=== PATIENT | female | born 1970 | race Caucasian/White ===

== ENCOUNTER 2017-07-13 11:38 | Emergency (ER) | payer OTHER ==
[2017-07-13] MEDS ORDERED: ONDANSETRON 4 MG/2 ML VIAL IVPUSH ONE (12:12)
[2017-07-13] MEDS ORDERED: SODIUM CHLORIDE 1,000 ML IV STA (12:12)
--- NOTE | 2017-07-13 12:13 | PDOC ---
History of Present Illness - General Stated Complaint: ABD PAIN Time Seen by Provider: 07/13/17 12:04 - History of Present Illness Initial Comments: 07/13/17 12:18 The patient is a 46 year old female with a history of HTN, DM, and a Gastric Sleeve 5 years ago who presents for evaluation of abdominal pain. The patient reports acute onset of twisting, colicy left sided abdominal pain beginning 2 hours prior to presentation. She states that the pain is worse with movement and when she "feels her intestines move." She states that she did not eat anything unusual this morning only having some coffee and a peanut butter sandwich. She denies fevers, chills, SOB, chest pain, vomiting, or changes with urination or bowel movements. She does endorse some nausea. Past History - Past Medical History Allergies/Adverse Reactions: Allergies Allergy/AdvReac Type Severity Reaction Status Date / Time No Known Allergies Allergy Verified 01/13/16 05:25 Home Medications: Ambulatory Orders Cholecalciferol (Vitamin D3) [Vitamin D3 -] 5,000 unit PO Q48H 01/13/16 Losartan Potassium [Cozaar -] 25 mg PO DAILY 01/13/16 Omeprazole [Prilosec] 40 mg PO DAILY 01/13/16 Losartan Potassium [Cozaar -] 25 mg PO DAILY #30 tablet 01/15/16 Metronidazole [Flagyl -] 250 mg PO TID #15 tablet 01/15/16 Diabetes: Yes GI Disorders: Yes (GERD) HTN: Yes - Surgical History Appendectomy: Yes - Suicide/Smoking/Psychosocial Hx Smoking Status: No Smoking History: Former smoker Have you smoked in the past 12 months: No Number of Cigarettes Smoked Daily: 0 If you are a former smoker, when did you quit?: June 2011 'Breaking Loose' booklet given: 01/13/16 Hx Alcohol Use: No Drug/Substance Use Hx: No Substance Use Type: None Hx Substance Use Treatment: No Review of Systems - Review of Systems Comments:: 07/13/17 12:21 Constitutional: No fevers, chills, fatigue, malaise HEENT: No Rhinorrhea, nasal congestion, Cardiovascular: No chest pain, syncope, palpitations, lightheadedness Respiratory: No Cough, SOB, Hemoptysis, Gastrointestinal: Abdominal pain, nausea. No Vomiting, Constipation, Diarrhea, Melena Genitourinary: No Dysuria, Frequency, Urgency, Hesitancy, Hematuria, Flank pain Musculoskeletal: No Myalgia, arthralgia Skin: No rashes, bruising, pallor Neurologic: No Headache, Dizziness, Numbness, Weakness, or Tingling Psychiatric: No Hallucinations. No SI or HI *Physical Exam - Physical Exam Comments: 07/13/17 12:21 General Appearance: Nourished. No Apparent Distress HEENT: EOMI, PRIYANKA. No Pharyngeal Erythema, Tonsillar Exudate, Tonsillar Erythema Neck: No Cervical Lymphadenopathy Respiratory/Chest: Lungs Clear, Normal Breath Sounds. No Crackles, Rales, Rhonchi, Wheezing Cardiovascular: Regular Rhythm, Regular Rate. No Murmur, Gallops, Rubs Gastrointestinal/Abdominal: Normal Bowel Sounds, Soft. Mild suprapubic and LLQ tenderness to palpation. No Guarding, Rebound, Musculoskeletal: No CVA Tenderness Extremity: Normal Capillary Refill Integumentary: Normal Color, Dry, Warm Neurologic: Fully Oriented, Alert, Normal Mood/Affect, Normal Response, ED Treatment Course - LABORATORY CBC & Chemistry Diagram: 07/13/17 13:30 07/13/17 13:30 Medical Decision Making - Medical Decision Making 07/13/17 12:23 The patient is a 46 year old female with a history of HTN, DM, and a Gastric Sleeve 5 years ago who presents for evaluation of abdominal pain. Differential includes but is not limited to: Gastroenteritis, pancreatitis, acs, infectious, metabolic derangement. Given the patient's described symptoms of acute colicy abdominal pain, it is likely her symptoms are due to a gastroenteritis. However given her significant comorbidities, we will obtain a cbc, cmp, troponin , lipase to evaluate for other etiologies including pancreatitis, and acs although less likely. We are also concerned for a SBO given her surgical history and acute onset of symptoms. We will obtain an abdomen/pelvis CT to evaluate further. We will treat the patient with iv fluids and zofran here in the ED and continue to monitor and reassess. 07/13/17 17:34 cbc demonstrates an elevated wbc to 15. cmp, troponin, lipase were unremarkable. CT results did not demonstrate any acute pathology as read by our radiologist. The patient reports some improvement in her symptoms. We discussed the results with the patient and she stated that she is able to see her primary care provider tomorrow and feels comfortable going home. We are comfortable discharging the patient home at this time with PCP follow up. The patient voiced understanding and is agreeable with the plan. *DC/Admit/Observation/Transfer Diagnosis at time of Disposition: Abdominal pain Qualifiers: Abdominal location: left lower quadrant Qualified Code(s): R10.32 - Left lower quadrant pain - Discharge Dispostion Disposition: HOME Condition at time of disposition: Improved Admit: No - Referrals Referrals: Justine Jarrell MD [Primary Care Provider] - - Patient Instructions Printed Discharge Instructions: DI for Abdominal Pain-Adult Additional Instructions: Please return to the ER if you experience concerning or worsening symptoms including vomiting that does not stop, fevers, or worsening abdominal pain. You were seen in the ER for abdominal pain. Your lab results and CT scan were unremarkable. You may try miralaxx at home to see if that helps improve your symptoms. Please follow up with your primary care provider tomorrow to discuss your ER visit and further management of your symptoms. - Post Discharge Activity
[2017-07-13] MEDS ORDERED: morphine CARPU-JECT 2 MG/1 ML DISP.SYRIN IVPUSH ONE (12:30)
[2017-07-13] MEDS ORDERED: morphine SULFATE 4 MG/ML VIAL ONE (13:03)
[2017-07-13] MEDS ORDERED: ONDANSETRON 4 MG/2 ML VIAL ONE (13:04)
--- NOTE | 2017-07-13 13:34 | PDOC ---
Attending Attestation - Resident Resident Name: Zaheer Carlisleel - ED Attending Attestation I have performed the following: I have examined & evaluated the patient, The case was reviewed & discussed with the resident, I agree w/resident's findings & plan, Exceptions are as noted - HPI HPI: 07/13/17 13:28 46-year-old female with history of gastric sleeve, cholecystectomy, appendectomy , tubal ligation presents with acute onset of left mid/left lower quadrant pain about 2 hours ago, constant since onset with intermittent exacerbations, has urge to defecate but no stool output and only minimal flatus. Nausea but no vomiting, has not had any by mouth intake since onset. No urinary complaints, did have normal urination during this pain. No history of recurring abdominal pain, no history of obstruction. - Physicial Exam PE: 07/13/17 13:30 Heart rate normal Abdomen is soft and nondistended. Tender with guarding in the left mid and left lower quadrant, bowel sounds are within normal limits. No CVA tenderness - Medical Decision Making 07/13/17 13:30 Patient seen and evaluated with the resident. I agree with the overall evaluation, assessment, and management with the following summary of visit: 46-year-old female with several abdominal surgeries in the past presents with acute onset of left lower quadrant pain with focal tenderness. Presentation could be consistent with obstruction, rule out colitis or diverticulitis, less likely source but ? colic. labs, ua pain control, anti-emetic ivf CTAP reassess 07/13/17 16:35 leukocytosis 15.7, chem otherwise wnl including lipase. UA wnl, 1+ blood but only 1 RBC. CTAP pending, will dispo accordingly. Heart Score/ECG Review #1 ECG reviewed & interpreted by me at: 14:40 General ECG Interpretation: Sinus Rhythm, Normal Rate (58), Normal Intervals ( qtc 449), No acute ischemic changes
[2017-07-13 13:48] VITALS: PULSE 73; BMI 34.1
[2017-07-13 14:11] LABS: BASOPHIL 0.5 % (0-2.0); EOSINOPHIL 0.8 % (0-4.5); MCH 28.3 pg (25.7-33.7); MEAN CELL VOLUME 85.9 fl (80-96); MEAN PLT VOLUME 7.8 fl (7.5-11.1); NEUTROPHILS 84.2 % (42.8-82.8); PLATELET COUNT 303 K/MM3 (134-434); RDW 13.9 % (11.6-15.6); WHITE BLOOD COUNT 15.7 K/mm3 (4.0-10.0)
[2017-07-13 14:37] LABS: ALBUMIN 3.7 g/dl (3.4-5.0); ANION GAP 11 (8-16); BILIRUBIN,TOTAL 0.7 mg/dL (0.2-1.0); CALCIUM 8.7 mg/dL (8.5-10.1); CO2 24 mmol/L (21-32); CREATININE 0.5 mg/dL (0.55-1.02); GLUCOSE,RANDOM 82 mg/dL (74-106); SGPT/ALT 31 U/L (12-78); TOT PROT 7.5 g/dl (6.4-8.2)
[2017-07-13 14:41] LABS: ALK PHOS 69 U/L (45-117); TROPONIN I < 0.02 ng/ml (0.00-0.05)
[2017-07-13 14:52] LABS: SGOT/AST 29 U/L (15-37)
--- NOTE | 2017-07-13 15:09 | EKG ---
Test Reason : Blood Pressure : / mmHG Vent. Rate : 058 BPM Atrial Rate : 058 BPM P-R Int : 170 ms QRS Dur : 086 ms QT Int : 458 ms P-R-T Axes : 031 002 020 degrees QTc Int : 449 ms SINUS BRADYCARDIA CANNOT RULE OUT ANTERIOR INFARCT , AGE UNDETERMINED ABNORMAL ECG WHEN COMPARED WITH ECG OF 03-MAR-2012 13:22, NO SIGNIFICANT CHANGE WAS FOUND Confirmed by LYNN DAVISON MD ([id number]) on 07/13/2017 3:08:46 PM Referred By: Confirmed By:LYNN DAVISON MD
[2017-07-13 15:49] LABS: URINE APPEARANCE CLOUDY; URINE BILIRUBIN NEGATIVE (NEGATIVE); URINE BLOOD 1+ (NEGATIVE); URINE COLOR YELLOW; URINE GLUCOSE (UA) NEGATIVE (NEGATIVE); URINE KETONE NEGATIVE (NEGATIVE); URINE NITRITE NEGATIVE (NEGATIVE); URINE PROTEIN NEGATIVE (NEGATIVE); URINE UROBILINOGEN NEGATIVE mg/dL (0.2-1.0)
[2017-07-13 15:50] LABS: CPK 6 IU/L (26-192)
[2017-07-13 15:55] LABS: URINE BACTERIA RARE /hpf (NONE SEEN); URINE MUCUS RARE; URINE RBC 1; URINE WBC 3
[2017-07-13 17:54] LABS: URINE LEUK ESTERASE Negative (NEGATIVE)
[2017-07-13 18:02] VITALS: BP 126/56; TEMP 98.1
== END 2017-07-13 18:15 | disposition home or self-care (01) ==
LOC: JER 11:38
PROC: 3E033GC Introduction of Other Therapeutic Substance into Peripheral Vein, Percutaneous Approach (ICD-10-PCS; principal; 2017-07-13)
PROC: 3E033NZ Introduction of Analgesics, Hypnotics, Sedatives into Peripheral Vein, Percutaneous Approach (ICD-10-PCS; 2017-07-13)
DX: R10.32 Left lower quadrant pain (principal); I10 Essential (primary) hypertension; E11.9 Type 2 diabetes mellitus without complications; K21.9 Gastro-esophageal reflux disease without esophagitis; Z98.84 Bariatric surgery status; Z87.891 Personal history of nicotine dependence
CPT/HCPCS: 36415; 74177-TC; 80053; 81003; 81015; 82550; 83690; 84484; 84703; 85025; 93005; 93010; 99283-25